=== PATIENT | male | born 1950 | race African-American/Black ===

== ENCOUNTER 2016-09-25 06:40 | Emergency (ER) | payer MEDICARE ==
[~2016-09-25] VITALS: Ht 182.9 cm; Wt 100.0 kg
[~2016-09-25 06:40] MED LIST: GABA300C PO
[2016-09-25] MEDS ORDERED: IPRATROPIUM BROMIDE (0.02%) 0.5MG/2.5ML NEB HHN STA (07:16)
[2016-09-25] MEDS ORDERED: ALBUTEROL (0.083%) 2.5MG/3ML NEB HHN STA (07:16)
[2016-09-25] MEDS ORDERED: METHYLPREDNISOLONE SOD SUCC 125 MG/2 ML VIAL IV STA (07:16)
[2016-09-25] MEDS ORDERED: ALBUTEROL (0.5%) 2.5MG/0.5ML NEB HHN ONE (07:45)
[2016-09-25] MEDS ORDERED: MAGNESIUM 2 G PREMIX 50 ML IV STA (09:04)
[2016-09-25] MEDS ORDERED: ALBUTEROL (0.083%) 2.5MG/3ML NEB HHN ONE ×2 (09:15→10:45)
[2016-09-25 10:18] VITALS: BP 149/84
== END 2016-09-25 12:20 | disposition home or self-care (01) ==
LOC: EDBD 06:40 → ER 07:30
DX: J44.1 Chronic obstructive pulmonary disease with (acute) exacerbation (principal); F17.210 Nicotine dependence, cigarettes, uncomplicated; I10 Essential (primary) hypertension; Z88.0 Allergy status to penicillin; F41.9 Anxiety disorder, unspecified
CPT/HCPCS: 71010; 93005; 94640; 96365; 96366; 96375; 99285; J2930; J3475; J7611; Z7610

== ENCOUNTER 2016-11-26 09:10 | Emergency (ER) | payer MEDICARE ==
[~2016-11-26] VITALS: Ht 182.9 cm; Wt 96.0 kg
[2016-11-26 10:01] VITALS: BP 129/90
== END 2016-11-26 15:27 | disposition left against medical advice (07) ==
LOC: EDBD 09:10 → ER 09:10
DX: Z53.21 Procedure and treatment not carried out due to patient leaving prior to being seen by health care provider (principal); F41.9 Anxiety disorder, unspecified; J44.9 Chronic obstructive pulmonary disease, unspecified; I10 Essential (primary) hypertension; F17.210 Nicotine dependence, cigarettes, uncomplicated; F12.10 Cannabis abuse, uncomplicated

== ENCOUNTER 2017-02-02 07:56 | Inpatient (IN) | payer MEDICARE ==
[~2017-02-02] VITALS: Ht 182.9 cm; Wt 99.8 kg
[2017-02-02] MEDS ORDERED: IPRATROPIUM BROMIDE (0.02%) 0.5MG/2.5ML NEB HHN STA (08:28)
[2017-02-02] MEDS ORDERED: ALBUTEROL (0.083%) 2.5MG/3ML NEB HHN STA (08:28)
[2017-02-02] MEDS ORDERED: METHYLPREDNISOLONE SOD SUCC 125 MG/2 ML VIAL IV STA (08:28)
[2017-02-02] MEDS ORDERED: AZITHROMYCIN 500 MG TABLET PO STA (08:28)
[2017-02-02 08:38] LABS: BASOPHILS % 1.4 % (0.0-2.0); EOSINOPHILS % 5.6 % (0.0-5.0); HEMOGLOBIN. 13.7 g/dL (14.0-18.0); LYMPHOCYTES % 51.1 % (20.0-50.0); MEAN CORPUSCULAR HEMOGLOBIN 31.9 pg (28.0-32.0); MEAN CORPUSCULAR VOLUME 97.8 fL (80.0-94.0); MONOCYTES % 9.7 % (2.0-8.0); NEUTROPHILS % 32.2 % (40.0-76.0); PLATELET 174 x1000/uL (130-400); RED BLOOD CELL COUNT 4.29 mill/uL (4.7-6.1); RED CELL DISTRIBUTION WIDTH 17.9 % (11.6-14.6)
[2017-02-02 08:40] LABS: PROTHROMBIN TIME 10.4 sec (9.4-11.6)
[2017-02-02 08:48] LABS: CARBON DIOXIDE 29 mEq/L (21-32); CHLORIDE 109 mEq/L (98-107)
[2017-02-02 08:51] LABS: TROPONIN I < 0.02 ng/mL (0.00-0.04)
[2017-02-02] MEDS ORDERED: NA PHOS,M-B/NA PHOS,DI-BA ENEMA 118ML PR PRN (12:45)
[2017-02-02] MEDS ORDERED: CLONIDINE 0.1MG TABLET PO PRN (12:45)
[2017-02-02] MEDS ORDERED: GUAIFENESIN 200MG/10ML SUGAR FREE UDC PO PRN (12:45)
[2017-02-02] MEDS ORDERED: LORAZEPAM 2MG/ML CPJ IV PRN (12:45)
[2017-02-02] MEDS ORDERED: ONDANSETRON HCL 4MG/2ML VIAL IV PRN (12:45)
[2017-02-02] MEDS ORDERED: ACETAMINOPHEN 325MG TABLET PO PRN (12:45)
[2017-02-02] MEDS ORDERED: NITROGLYCERIN 0.4MG TABLET SL SL PRN (12:45)
[2017-02-02] MEDS ORDERED: DOCUSATE SODIUM 100MG CAPSULE PO PRN (12:45)
[2017-02-02] MEDS ORDERED: KETOROLAC 15MG/ML VIAL IV PRN (12:45)
[2017-02-02] MEDS ORDERED: IPRATROPIUM/ALBUTEROL 0.5-3(2.5)MG/3ML NEB INH PRN (12:45)
[2017-02-02] MEDS ORDERED: MAGNESIUM/ALUMINUM HYDROXIDE/SIMETHICONE 30ML UDC PO PRN (12:45)
[2017-02-02 13:00] VITALS: BP 143/84
[2017-02-02 13:51] VITALS: BP 143/84
[2017-02-02] MEDS ORDERED: ASPIRIN 325MG EC TABLET PO SCH (14:00)
[2017-02-02] MEDS ORDERED: IPRATROPIUM/ALBUTEROL 0.5-3(2.5)MG/3ML NEB HHN SCH (14:00)
[2017-02-02] MEDS ORDERED: ENOXAPARIN 40MG/0.4ML SYR SUBCUT SCH (14:00)
[2017-02-02] MEDS ORDERED: FAMOTIDINE 20MG/2ML VIAL IV SCH (14:00)
[2017-02-02] MEDS ORDERED: METHYLPREDNISOLONE SOD SUCC 125 MG/2 ML VIAL IV SCH (14:00)
[2017-02-02] MEDS ORDERED: LEVOFLOXACIN 500MG PREMIX 100 ML IV NR (15:00)
[2017-02-02 15:51] LABS: CREATINE KINASE 59 IU/L (39-308); CREATINE KINASE MB FRACTION 1.3 ng/mL (0.5-3.6); TROPONIN I < 0.02 ng/mL (0.00-0.04)
[2017-02-02 16:00] VITALS: BP 125/88
[2017-02-02 20:00] VITALS: BP 157/86
[2017-02-02] MEDS ORDERED: ZOLPIDEM TARTRATE 5MG TABLET PO PRN (21:00)
[2017-02-02] MEDS ORDERED: LISINOPRIL 20MG TABLET PO SCH (21:00)
[2017-02-02 21:53] LABS: *AMPHETAMINES SCREEN URINE NEGATIVE (NEGATIVE); *BARBITURATES SCREEN URINE NEGATIVE (NEGATIVE); *BENZODIAZEPINES SCREEN URINE NEGATIVE (NEGATIVE); *COCAINE SCREEN URINE PRESUMTIVE POSITIVE (NEGATIVE); CANNABINOID URINE SCREEN PRESUMTIVE POSITIVE (NEGATIVE); METHADONE URINE SCREEN NEGATIVE (NEGATIVE); OPIATES URINE SCREEN NEGATIVE (NEGATIVE); PHENCYCLIDINE URINE SCREEN NEGATIVE (NEGATIVE)
[2017-02-03] MEDS ORDERED: ZINC SULFATE 220 MG ( 50 ) CAPSULE PO SCH (09:00)
[2017-02-03] MEDS ORDERED: LEVOFLOXACIN 250MG PREMIX 50 ML IV SCH (15:00)
== END 2017-02-02 20:00 | disposition left against medical advice (07) | DRG 140 ==
LOC: ER 07:56 → 5WST 10:07 → EDBEDREQ 10:09 → ENRESERV 11:31
PROVIDERS: ADMIT Internal Medicine; ATTEND Internal Medicine
DX: J44.1 Chronic obstructive pulmonary disease with (acute) exacerbation (principal); N17.0 Acute kidney failure with tubular necrosis; D64.9 Anemia, unspecified; E83.52 Hypercalcemia; F17.210 Nicotine dependence, cigarettes, uncomplicated; I10 Essential (primary) hypertension; F41.9 Anxiety disorder, unspecified; Z53.21 Procedure and treatment not carried out due to patient leaving prior to being seen by health care provider; F14.90 Cocaine use, unspecified, uncomplicated; F15.90 Other stimulant use, unspecified, uncomplicated; Z79.899 Other long term (current) drug therapy; Z88.0 Allergy status to penicillin; Z71.51 Drug abuse counseling and surveillance of drug abuser
CPT/HCPCS: 36415; 71010; 80053; 80061; 80305; 82550; 82553; 83036; 83880; 84484; 85025; 85610; 93005; 93970; 94640; 96374; 99285; J1650; J1885; J1956; J2930; J3490; J7050; J7611; J7620

== ENCOUNTER 2017-02-08 17:54 | Inpatient (IN) | payer MEDICARE ==
[~2017-02-08] VITALS: Ht 182.9 cm; Wt 130.2 kg
[2017-02-08] MEDS ORDERED: IPRATROPIUM/ALBUTEROL 0.5-3(2.5)MG/3ML NEB HHN ONE (19:00)
[2017-02-08 19:33] LABS: BASOPHILS % 0.8 % (0.0-2.0); EOSINOPHILS % 3.5 % (0.0-5.0); HEMATOCRIT. 36.3 % (42.0-52.0); HEMOGLOBIN. 11.9 g/dL (14.0-18.0); LYMPHOCYTES % 40.8 % (20.0-50.0); MEAN CORPUSCULAR HEMOGLOBIN 32.2 pg (28.0-32.0); MEAN CORPUSCULAR VOLUME 97.8 fL (80.0-94.0); MEAN PLATELET VOLUME 9.8 fl (7.4-10.4); MONOCYTES % 7.8 % (2.0-8.0); NEUTROPHILS % 47.1 % (40.0-76.0); PLATELET 188 x1000/uL (130-400); RED BLOOD CELL COUNT 3.71 mill/uL (4.7-6.1); RED CELL DISTRIBUTION WIDTH 17.2 % (11.6-14.6)
[2017-02-08 19:46] LABS: CHLORIDE 108 mEq/L (98-107)
[2017-02-08 19:48] LABS: CARBON DIOXIDE 29 mEq/L (21-32)
[2017-02-08 19:55] LABS: TROPONIN I < 0.02 ng/mL (0.00-0.04)
[2017-02-08 23:10] VITALS: BP 124/88
[2017-02-09] MEDS ORDERED: MORPHINE SULFATE 4 MG/ML CPJ (NOT FOR IM USE) IV PRN (02:45)
[2017-02-09] MEDS ORDERED: METHYLPREDNISOLONE SOD SUCC 40 MG/ML VIAL IV SCH (02:45)
[2017-02-09] MEDS ORDERED: IPRATROPIUM/ALBUTEROL 0.5-3(2.5)MG/3ML NEB HHN PRN (02:45)
[2017-02-09] MEDS ORDERED: ONDANSETRON HCL 4MG/2ML VIAL IV PRN (02:45)
[2017-02-09] MEDS ORDERED: CLONIDINE 0.1MG TABLET PO PRN (03:00)
[2017-02-09 04:00] VITALS: BP 130/79
[2017-02-09 04:57] VITALS: BP 124/88
[2017-02-09] MEDS ORDERED: IPRATROPIUM/ALBUTEROL 0.5-3(2.5)MG/3ML NEB HHN SCH (06:00)
[2017-02-09 08:00] VITALS: BP 144/97
[2017-02-09] MEDS ORDERED: FUROSEMIDE 40MG/4ML VIAL IVP SCH (09:00)
[2017-02-09] MEDS ORDERED: INFLUENZA VIRUS VACCINE 0.5ML SYR IM ONE (09:00)
[2017-02-09] MEDS ORDERED: AMLODIPINE 10MG TABLET PO SCH (09:00)
[2017-02-09] MEDS ORDERED: ASPIRIN 81MG TABLET PO SCH (09:00)
== END 2017-02-09 08:30 | disposition left against medical advice (07) | DRG 140 ==
LOC: ER 17:54 → 7WST 20:46 → EDBEDREQ 20:52 → EDBEDREQTM 20:52 → ENRESERV 21:14
PROVIDERS: ADMIT Hospitalist; ATTEND Hospitalist
DX: J44.1 Chronic obstructive pulmonary disease with (acute) exacerbation (principal); I95.9 Hypotension, unspecified; E11.22 Type 2 diabetes mellitus with diabetic chronic kidney disease; E87.8 Other disorders of electrolyte and fluid balance, not elsewhere classified; E88.09 Other disorders of plasma-protein metabolism, not elsewhere classified; E87.70 Fluid overload, unspecified; D53.9 Nutritional anemia, unspecified; F17.200 Nicotine dependence, unspecified, uncomplicated; J45.909 Unspecified asthma, uncomplicated; N18.9 Chronic kidney disease, unspecified; I12.9 Hypertensive chronic kidney disease with stage 1 through stage 4 chronic kidney disease, or unspecified chronic kidney disease; E86.0 Dehydration; M94.0 Chondrocostal junction syndrome [Tietze]; Z53.21 Procedure and treatment not carried out due to patient leaving prior to being seen by health care provider; Z88.0 Allergy status to penicillin; Z79.899 Other long term (current) drug therapy; Z86.73 Personal history of transient ischemic attack (TIA), and cerebral infarction without residual deficits
CPT/HCPCS: 36415; 71010; 80053; 83036; 83880; 84484; 85025; 85610; 85651; 87040; 90686; 93005; 94640; 94664; 99285; J2920; J7620

== ENCOUNTER 2018-03-23 09:07 | Emergency (ER) | payer MEDICARE ==
[~2018-03-23] VITALS: Ht 182.9 cm; Wt 82.0 kg
[2018-03-23] MEDS ORDERED: ONDANSETRON 4MG ODT PO ONE (11:00)
[2018-03-23] MEDS ORDERED: MORPHINE SULFATE 10 MG/ML CPJ IM ONE (11:00)
[2018-03-23 11:24] LABS: BASOPHILS % 1.8 % (0.0-2.0); EOSINOPHILS % 2.8 % (0.0-5.0); HEMATOCRIT. 40.3 % (42.0-52.0); HEMOGLOBIN. 13.2 g/dL (14.0-18.0); LYMPHOCYTES % 54.6 % (20.0-50.0); MEAN CORPUSCULAR HEMOGLOBIN 28.6 pg (28.0-32.0); MEAN CORPUSCULAR VOLUME 86.9 fL (80.0-94.0); MEAN PLATELET VOLUME 8.7 fl (7.4-10.4); MONOCYTES % 10.2 % (2.0-8.0); NEUTROPHILS % 30.6 % (40.0-76.0); PLATELET 160 x1000/uL (130-400); RED BLOOD CELL COUNT 4.63 mill/uL (4.7-6.1); RED CELL DISTRIBUTION WIDTH 17.1 % (11.6-14.6)
[2018-03-23 11:30] LABS: CHLORIDE 108 mEq/L (98-107)
[2018-03-23 11:33] LABS: PROTHROMBIN TIME 10.4 sec (9.1-11.1)
[2018-03-23] MEDS ORDERED: MORPHINE SULFATE 4 MG/ML CPJ (NOT FOR IM USE) IV ONE (12:45)
[2018-03-23 13:56] VITALS: BP 142/88
== END 2018-03-23 14:00 | disposition home or self-care (01) ==
LOC: ER 13:24
DX: M25.551 Pain in right hip (principal); M54.5 Low back pain; E11.9 Type 2 diabetes mellitus without complications; I10 Essential (primary) hypertension; F17.200 Nicotine dependence, unspecified, uncomplicated; F12.10 Cannabis abuse, uncomplicated; Z88.0 Allergy status to penicillin
CPT/HCPCS: 36415; 72100; 73502; 80053; 85025; 85610; 85651; 86140; 96374; 99285; J2270; Q0162

== ENCOUNTER 2018-09-27 16:48 | Inpatient (IN) | payer MEDICARE ==
[~2018-09-27] VITALS: Ht 182.9 cm; Wt 83.9 kg
[2018-09-27] MEDS ORDERED: ALBUTEROL (0.083%) 2.5MG/3ML NEB HHN STA (17:24)
[2018-09-27] MEDS ORDERED: ONDANSETRON HCL 4MG/2ML INJ IV STA (17:24)
[2018-09-27] MEDS ORDERED: METHYLPREDNISOLONE SOD SUCC 125 MG/2 ML VIAL IV STA (17:24)
[2018-09-27] MEDS ORDERED: IPRATROPIUM BROMIDE (0.02%) 0.5MG/2.5ML NEB HHN STA (17:24)
[2018-09-27] MEDS ORDERED: ASPIRIN 81MG TABLET PO ONE (17:30)
[2018-09-27 17:51] LABS: BG BASE EXCESS 0.9 mmol/L (-2.0-2.0); BG DEOXYHEMOGLOBIN 9.5 % (0.0-5.0); BG FRACTION INSPIRED OXYGEN 28; BG HCO3 ACT 25.1 mmol/L (22.0-26.0); BG METHEMOGLOBIN 0.1 % (0.0-1.5); BG OXYGEN SATURATION 90.3 % (92.0-98.5); BG OXYHEMOGLOBIN 88.4 % (94.0-97.0); BG PCO2 38.8 mmHg (35.0-45.0); BG PH 7.429 (7.350-7.450); BG PO2 58.3 mmHg (75.0-100.0); BG SAMPLE SITE RIGHT RADIAL; BG TOTAL HEMOGLOBIN 14.6 g/dL (12.0-18.0); BG VENT MODE NASAL CANNULA
[2018-09-27 18:38] LABS: HEMATOCRIT. 43.5 % (42.0-52.0); HEMOGLOBIN. 14.2 g/dL (14.0-18.0); MEAN CORPUSCULAR HEMOGLOBIN 30.7 pg (28.0-32.0); MEAN CORPUSCULAR VOLUME 94.1 fL (80.0-94.0); MEAN PLATELET VOLUME 8.7 fl (7.4-10.4); PLATELET 145 x1000/uL (130-400); RED BLOOD CELL COUNT 4.62 mill/uL (4.7-6.1); RED CELL DISTRIBUTION WIDTH 17.3 % (11.6-14.6)
[2018-09-27 18:44] LABS: CHLORIDE 105 mEq/L (98-107)
[2018-09-27 20:15] LABS: PLATELET ESTIMATE NORMAL
[2018-09-27] MEDS ORDERED: ALBUTEROL (0.5%) 2.5MG/0.5ML NEB HHN ONE (22:00)
[2018-09-27] MEDS ORDERED: DOCUSATE SODIUM 100MG CAPSULE PO PRN (23:30)
[2018-09-27] MEDS ORDERED: ACETAMINOPHEN 650MG/20.3ML UDC GT PRN (23:30)
[2018-09-27] MEDS ORDERED: ACETAMINOPHEN 650MG SUPP PR PRN (23:30)
[2018-09-27] MEDS ORDERED: ACETAMINOPHEN 325MG TABLET PO PRN (23:30)
[2018-09-27] MEDS ORDERED: MAGNESIUM/ALUMINUM HYDROXIDE/SIMETHICONE 30ML UDC PO PRN (23:30)
[2018-09-27] MEDS ORDERED: CLONIDINE 0.1MG TABLET PO PRN (23:30)
[2018-09-27] MEDS ORDERED: GUAIFENESIN 200MG/10ML SUGAR FREE UDC PO PRN (23:30)
[2018-09-27] MEDS ORDERED: IPRATROPIUM/ALBUTEROL 0.5-3(2.5)MG/3ML NEB INH PRN (23:30)
[2018-09-27] MEDS ORDERED: HYDROCODONE/ACETAMINOPHEN 5/325MG TABLET PO PRN (23:30)
[2018-09-27] MEDS ORDERED: ONDANSETRON HCL 4MG/2ML INJ IV PRN (23:30)
[2018-09-27] MEDS ORDERED: DIPHENHYDRAMINE 50MG/ML VIAL IV PRN (23:30)
[2018-09-28] MEDS ORDERED: SODIUM CHLORIDE 0.45% 1,000 ML IV SCH (00:16)
[2018-09-28] MEDS: METHYLPREDNISOLONE SOD SUCC 125 MG/2 ML VIAL IV SCH ×2 (00:33→06:00)
[2018-09-28 02:30] VITALS: BP 134/81
[2018-09-28] MEDS ORDERED: NA PHOS,M-B/NA PHOS,DI-BA ENEMA 118ML PR PRN (03:11)
[2018-09-28 04:00] VITALS: BP 147/82
[2018-09-28] MEDS ORDERED: SODIUM CHLORIDE 0.9% INJ 3ML FLUSH IVF SCH (06:00)
[2018-09-28 06:02] LABS: BASOPHILS % 0.5 % (0.0-2.0); HEMATOCRIT. 39.5 % (42.0-52.0); LYMPHOCYTES % 12.1 % (20.0-50.0); MEAN CORPUSCULAR HEMOGLOBIN 30.7 pg (28.0-32.0); MEAN CORPUSCULAR VOLUME 93.3 fL (80.0-94.0); MEAN PLATELET VOLUME 8.5 fl (7.4-10.4); MONOCYTES % 2.2 % (2.0-8.0); NEUTROPHILS % 85.2 % (40.0-76.0); PLATELET 140 x1000/uL (130-400); RED BLOOD CELL COUNT 4.23 mill/uL (4.7-6.1); RED CELL DISTRIBUTION WIDTH 17.3 % (11.6-14.6)
[2018-09-28 06:46] LABS: CHLORIDE 106 mEq/L (98-107)
[2018-09-28 07:07] LABS: LDL CHOLESTEROL 99 mg/dL (5-100)
[2018-09-28 07:08] LABS: HDL CHOLESTEROL 63 mg/dL (40-59)
[2018-09-28 08:00] VITALS: BP 134/84
[2018-09-28] MEDS ORDERED: ENOXAPARIN 30MG/0.3ML SYR SUBCUT SCH (09:00)
[2018-09-28] MEDS ORDERED: ENOXAPARIN 40MG/0.4ML SYR SUBCUT SCH ×2 (09:00)
[2018-09-28 09:50] LABS: CLARITY URINE CLOUDY (CLEAR); COLOR URINE YELLOW (YELLOW); KETONES URINE NEGATIVE (NEGATIVE); LEUKOCYTE ESTERASE URINE 1+ (NEGATIVE); NITRITE URINE NEGATIVE (NEGATIVE); OCCULT BLOOD URINE NEGATIVE (NEGATIVE); PROTEIN URINE 1+ (NEGATIVE); SPECIFIC GRAVITY URINE 1.019 (1.005-1.030); UROBILINOGEN URINE 0.2 E.U./dL (0.2-1.0)
[2018-09-28 10:57] LABS: *AMPHETAMINES SCREEN URINE NEGATIVE (NEGATIVE); *BARBITURATES SCREEN URINE NEGATIVE (NEGATIVE); *BENZODIAZEPINES SCREEN URINE NEGATIVE (NEGATIVE); *COCAINE SCREEN URINE NEGATIVE (NEGATIVE); METHADONE URINE SCREEN NEGATIVE (NEGATIVE); OPIATES URINE SCREEN NEGATIVE (NEGATIVE)
[2018-09-28 10:58] LABS: CANNABINOID URINE SCREEN PRESUMTIVE POSITIVE (NEGATIVE); PHENCYCLIDINE URINE SCREEN NEGATIVE (NEGATIVE)
[2018-09-28 11:52] VITALS: BP 164/99
[2018-09-28] MEDS ORDERED: INFLUENZA VIRUS VACCINE(AFLURIA) 0.5ML SYR IM ONE (12:00)
[2018-09-28] MEDS ORDERED: PNEUMOCOCCAL 23-VAL P-SAC VAC 0.5 ML IM ONE (12:00)
[2018-09-29] MEDS ORDERED: AMLO5TAB88 PO (14:58)
[2018-09-29] MEDS ORDERED: BENA20TA10 PO (14:58)
[2018-09-29] MEDS ORDERED: CLON-457 PO (14:58)
[2018-09-29] MEDS ORDERED: ATEN-42 PO (14:58)
[2018-09-29] MEDS ORDERED: DARU1TAB PO (14:58)
[2018-09-29] MEDS ORDERED: ABAC1TAB3 PO (14:59)
== END 2018-09-28 12:35 | disposition left against medical advice (07) | DRG 140 ==
LOC: ER 17:01 → 7WST 22:20 → EDBEDREQTM 22:26 → EDBEDREQ 22:26 → ENRESERV 09-28 01:36
PROVIDERS: ADMIT Family Medicine; ATTEND Family Medicine
PROC: 5A09357 Assistance with Respiratory Ventilation, Less than 24 Consecutive Hours, Continuous Positive Airway Pressure (ICD-10-PCS; principal; 2018-09-27)
DX: J44.1 Chronic obstructive pulmonary disease with (acute) exacerbation (principal); I11.0 Hypertensive heart disease with heart failure; I50.9 Heart failure, unspecified; E11.9 Type 2 diabetes mellitus without complications; E86.0 Dehydration; Z53.21 Procedure and treatment not carried out due to patient leaving prior to being seen by health care provider; Z88.0 Allergy status to penicillin; Z79.899 Other long term (current) drug therapy
CPT/HCPCS: 36415; 36600; 71045; 80061; 80305; 82375; 82805; 82962; 83605; 83880; 84484; 93005; 94640; 94660; 96374; 96375; 99291; J1650; J2405; J2930; J7611

== ENCOUNTER 2018-10-27 08:30 | Inpatient (IN) | payer MEDICARE ==
[~2018-10-27] VITALS: Ht 182.9 cm; Wt 84.4 kg
[~2018-10-27 08:30] MED LIST changes: +ABAC1TAB3 PO; +AMLO5TAB88 PO; +ATEN-42 PO; +BENA20TA10 PO; +CLON-457 PO; +DARU1TAB PO
[2018-10-27] MEDS ORDERED: ACETAMINOPHEN WITH CODEINE 300/30MG TABLET PO ONE (09:00)
[2018-10-27 09:57] LABS: CHLORIDE 110 mEq/L (98-107)
[2018-10-27 10:01] LABS: BASOPHILS % 1.2 % (0.0-2.0); EOSINOPHILS % 2.1 % (0.0-5.0); HEMATOCRIT. 40.2 % (42.0-52.0); HEMOGLOBIN. 12.9 g/dL (14.0-18.0); LYMPHOCYTES % 60.1 % (20.0-50.0); MEAN CORPUSCULAR HEMOGLOBIN 30.8 pg (28.0-32.0); MEAN CORPUSCULAR VOLUME 95.8 fL (80.0-94.0); MONOCYTES % 11.6 % (2.0-8.0); PLATELET 268 x1000/uL (130-400); RED CELL DISTRIBUTION WIDTH 18.6 % (11.6-14.6)
[2018-10-27] MEDS ORDERED: MORPHINE SULFATE 4 MG/ML CPJ (NOT FOR IM USE) IV ONE (10:30)
[2018-10-27 12:00] VITALS: BP 118/76
[2018-10-27] MEDS ORDERED: MORPHINE SULFATE 2 MG/ML CPJ (NOT FOR IM USE) IV PRN (12:15)
[2018-10-27] MEDS ORDERED: DOCUSATE SODIUM 100MG CAPSULE PO PRN (12:15)
[2018-10-27] MEDS ORDERED: ACETAMINOPHEN 325MG TABLET PO PRN (12:15)
[2018-10-27] MEDS ORDERED: NA PHOS,M-B/NA PHOS,DI-BA ENEMA 118ML PR PRN (12:15)
[2018-10-27] MEDS ORDERED: IPRATROPIUM/ALBUTEROL 0.5-3(2.5)MG/3ML NEB INH PRN (12:15)
[2018-10-27] MEDS ORDERED: MAGNESIUM/ALUMINUM HYDROXIDE/SIMETHICONE 30ML UDC PO PRN (12:15)
[2018-10-27] MEDS ORDERED: CLONIDINE 0.1MG TABLET PO PRN (12:15)
[2018-10-27] MEDS ORDERED: LORAZEPAM 2MG/ML CPJ IV PRN (12:15)
[2018-10-27] MEDS ORDERED: GUAIFENESIN 200MG/10ML SUGAR FREE UDC PO PRN (12:15)
[2018-10-27] MEDS ORDERED: HYDROCODONE/ACETAMINOPHEN 5/325MG TABLET PO PRN (12:15)
[2018-10-27] MEDS ORDERED: DIPHENHYDRAMINE 50MG/ML VIAL IV PRN (12:15)
[2018-10-27] MEDS ORDERED: ONDANSETRON HCL 4MG/2ML INJ IV PRN (12:15)
[2018-10-27] MEDS: ENOXAPARIN 40MG/0.4ML SYR SUBCUT SCH (12:51)
[2018-10-27 12:56] VITALS: BP 118/76
[2018-10-27 15:38] LABS: CHLORIDE 110 mEq/L (98-107)
[2018-10-27 16:00] VITALS: BP 145/87
[2018-10-27 20:00] VITALS: BP 143/85
[2018-10-28] VITALS: BP 113/67
[2018-10-28 04:00] VITALS: BP 127/72
[2018-10-28 06:27] LABS: CHLORIDE 109 mEq/L (98-107)
[2018-10-28 06:39] LABS: LDL CHOLESTEROL 92 mg/dL (5-100)
[2018-10-28 06:40] LABS: T4 FREE 1.13 ng/dL (0.76-1.46)
[2018-10-28 06:42] LABS: HDL CHOLESTEROL 47 mg/dL (40-59)
[2018-10-28 07:35] LABS: HEMATOCRIT. 36.5 % (42.0-52.0); HEMOGLOBIN. 11.9 g/dL (14.0-18.0); MEAN CORPUSCULAR HEMOGLOBIN 31.3 pg (28.0-32.0); MEAN CORPUSCULAR VOLUME 95.9 fL (80.0-94.0); MEAN PLATELET VOLUME 8.5 fl (7.4-10.4); PLATELET 335 x1000/uL (130-400); RED BLOOD CELL COUNT 3.81 mill/uL (4.7-6.1); RED CELL DISTRIBUTION WIDTH 18.2 % (11.6-14.6)
[2018-10-28 08:00] VITALS: BP 127/91
[2018-10-28] MEDS: NICOTINE 21MG PATCH TD SCH ×2 (09:00→11:51)
[2018-10-28 12:00] VITALS: BP 143/96
[2018-10-28 12:26] VITALS: BP 127/91
[2018-10-28 19:05] LABS: NUCLEATED RED BLOOD CELLS 1 /100 WBC; PLATELET ESTIMATE NORMAL
== END 2018-10-28 13:50 | disposition home or self-care (01) | DRG 351 ==
LOC: ER 08:30 → 6EST 10:25 → ENRESERV 11:27
PROVIDERS: ADMIT Internal Medicine; ATTEND Internal Medicine
DX: M87.851 Other osteonecrosis, right femur (principal); N17.0 Acute kidney failure with tubular necrosis; G89.29 Other chronic pain; F17.210 Nicotine dependence, cigarettes, uncomplicated; K21.9 Gastro-esophageal reflux disease without esophagitis; I10 Essential (primary) hypertension; M81.0 Age-related osteoporosis without current pathological fracture; Z82.49 Family history of ischemic heart disease and other diseases of the circulatory system; Z79.899 Other long term (current) drug therapy; Z88.0 Allergy status to penicillin
CPT/HCPCS: 36415; 71045; 73502; 80048; 80061; 84439; 84443; 93005; 96374; 97163; 99285; J1650; J2060; J2270; J7620

== ENCOUNTER 2019-05-14 12:33 | Inpatient (IN) | payer MEDICARE ==
[~2019-05-14] VITALS: Ht 182.9 cm; Wt 80.3 kg
[~2019-05-14 12:33] MED LIST changes: -BENA20TA10 PO; -DARU1TAB PO
[2019-05-14] MEDS ORDERED: ALBUTEROL (0.083%) 2.5MG/3ML NEB HHN STA (13:04)
[2019-05-14 14:14] LABS: BASOPHILS % 2.5 % (0.0-2.0); EOSINOPHILS % 1.1 % (0.0-5.0); HEMATOCRIT. 39.1 % (42.0-52.0); HEMOGLOBIN. 13.1 g/dL (14.0-18.0); LYMPHOCYTES % 33.2 % (20.0-50.0); MEAN CORPUSCULAR HEMOGLOBIN 31.3 pg (28.0-32.0); MEAN CORPUSCULAR VOLUME 93.5 fL (80.0-94.0); MEAN PLATELET VOLUME 8.3 fl (7.4-10.4); MONOCYTES % 9.9 % (2.0-8.0); NEUTROPHILS % 53.3 % (40.0-76.0); PLATELET 188 x1000/uL (130-400); RED BLOOD CELL COUNT 4.19 mill/uL (4.7-6.1); RED CELL DISTRIBUTION WIDTH 18.7 % (11.6-14.6)
[2019-05-14 14:20] LABS: CHLORIDE 108 mEq/L (98-107)
[2019-05-14] MEDS ORDERED: METHYLPREDNISOLONE SOD SUCC 125 MG/2 ML VIAL IV ONE (15:00)
[2019-05-14] MEDS ORDERED: ACETAMINOPHEN 325MG TABLET PO ONE (16:15)
[2019-05-14] MEDS ORDERED: MAGNESIUM/ALUMINUM HYDROXIDE/SIMETHICONE 30ML UDC PO PRN (16:45)
[2019-05-14] MEDS ORDERED: DIPHENHYDRAMINE 50MG/ML VIAL IV PRN (16:45)
[2019-05-14] MEDS ORDERED: IPRATROPIUM/ALBUTEROL 0.5-3(2.5)MG/3ML NEB NEB PRN (16:45)
[2019-05-14] MEDS ORDERED: NITROGLYCERIN 0.4MG TABLET SL SL PRN (16:45)
[2019-05-14] MEDS ORDERED: CLONIDINE 0.1MG TABLET PO PRN (16:45)
[2019-05-14] MEDS ORDERED: ACETAMINOPHEN 325MG TABLET PO PRN (16:45)
[2019-05-14] MEDS ORDERED: DOCUSATE SODIUM 100MG CAPSULE PO PRN (16:45)
[2019-05-14] MEDS ORDERED: LORAZEPAM 0.5MG TABLET PO PRN (16:45)
[2019-05-14] MEDS ORDERED: ONDANSETRON HCL 4MG/2ML INJ IV PRN (16:45)
[2019-05-14] MEDS ORDERED: KETOROLAC 15MG/ML VIAL IV PRN (16:45)
[2019-05-14] MEDS ORDERED: GUAIFENESIN 200MG/10ML SUGAR FREE UDC PO PRN (16:45)
[2019-05-14] MEDS ORDERED: TRAMADOL 50MG TABLET PO PRN (16:46)
[2019-05-14] MEDS ORDERED: LEVOFLOXACIN 500MG PREMIX 100 ML IV NR (18:37)
[2019-05-14] MEDS ORDERED: NA PHOS,M-B/NA PHOS,DI-BA ENEMA 118ML PR PRN (21:00)
[2019-05-14] MEDS ORDERED: ZOLPIDEM TARTRATE 5MG TABLET PO PRN (21:00)
[2019-05-14 23:00] VITALS: BP 168/100
[2019-05-14] MEDS: FAMOTIDINE 20MG TABLET PO SCH (23:45)
[2019-05-14] MEDS: LISINOPRIL 20MG TABLET PO SCH (23:45)
[2019-05-14 23:57] LABS: CREATINE KINASE 43 IU/L (39-308)
[2019-05-14 23:58] LABS: CREATINE KINASE MB FRACTION < 1.0 ng/mL (0.5-3.6)
[2019-05-15] MEDS: METHYLPREDNISOLONE SOD SUCC 125 MG/2 ML VIAL IV SCH ×2 (00:50→09:43)
[2019-05-15] MEDS ORDERED: LEVOFLOXACIN 500MG PREMIX 100 ML IV NR (01:00)
[2019-05-15 04:00] VITALS: BP 169/105
[2019-05-15] MEDS: IPRATROPIUM/ALBUTEROL 0.5-3(2.5)MG/3ML NEB HHN SCH ×2 (05:03→07:56)
[2019-05-15] MEDS ORDERED: GABAPENTIN 100MG CAPSULE PO SCH (06:00)
[2019-05-15 07:34] LABS: *AMPHETAMINES SCREEN URINE NEGATIVE (NEGATIVE); *BENZODIAZEPINES SCREEN URINE NEGATIVE (NEGATIVE); METHADONE URINE SCREEN NEGATIVE (NEGATIVE); OPIATES URINE SCREEN PRESUMTIVE POSITIVE (NEGATIVE)
[2019-05-15 07:35] LABS: CANNABINOID URINE SCREEN PRESUMTIVE POSITIVE (NEGATIVE); PHENCYCLIDINE URINE SCREEN NEGATIVE (NEGATIVE)
[2019-05-15 07:37] LABS: *BARBITURATES SCREEN URINE NEGATIVE (NEGATIVE)
[2019-05-15 07:38] LABS: *COCAINE SCREEN URINE NEGATIVE (NEGATIVE)
[2019-05-15 08:00] VITALS: BP 162/117
[2019-05-15] MEDS ORDERED: ENOXAPARIN 30MG/0.3ML SYR SUBCUT SCH (09:00)
[2019-05-15] MEDS ORDERED: ASPIRIN 325MG EC TABLET PO SCH (09:00)
[2019-05-15] MEDS ORDERED: ASCORBIC ACID 500 MG TABLET PO SCH (09:00)
[2019-05-15] MEDS ORDERED: GUAIFENESIN/DM 600MG/30MG ER TAB 12HR PO SCH (09:00)
[2019-05-15] MEDS ORDERED: ZINC SULFATE 220 MG ( 50 ) CAPSULE PO SCH (09:00)
[2019-05-15 09:04] LABS: CREATINE KINASE 48 IU/L (39-308)
[2019-05-15 09:06] LABS: CREATINE KINASE MB FRACTION < 1.0 ng/mL (0.5-3.6)
[2019-05-15] MEDS: FAMOTIDINE 20MG TABLET PO SCH (09:44)
[2019-05-15] MEDS: LISINOPRIL 20MG TABLET PO SCH (09:44)
[2019-05-15] MEDS ORDERED: LEVOFLOXACIN 500MG PREMIX 100 ML IV SCH (21:00)
== END 2019-05-15 10:36 | disposition left against medical advice (07) | DRG 140 ==
LOC: ER 12:33 → 5WST 16:11 → SUPCPDRO 16:36 → ENRESERV 22:08
PROVIDERS: ADMIT Internal Medicine; ATTEND Internal Medicine
DX: J44.1 Chronic obstructive pulmonary disease with (acute) exacerbation (principal); J96.00 Acute respiratory failure, unspecified whether with hypoxia or hypercapnia; G62.9 Polyneuropathy, unspecified; I11.0 Hypertensive heart disease with heart failure; I50.32 Chronic diastolic (congestive) heart failure; F12.10 Cannabis abuse, uncomplicated; F17.210 Nicotine dependence, cigarettes, uncomplicated; Z21 Asymptomatic human immunodeficiency virus [HIV] infection status; Z53.29 Procedure and treatment not carried out because of patient's decision for other reasons; K21.9 Gastro-esophageal reflux disease without esophagitis; Z88.0 Allergy status to penicillin
CPT/HCPCS: 36415; 71045; 80053; 80061; 80305; 82550; 82553; 83036; 83880; 84484; 85025; 93005; 93306; 93970; 94640; 96374; 99285; J1650; J1956; J2930; J7611; J7620

== ENCOUNTER 2020-01-18 01:55 | Inpatient (IN) | payer MEDICARE, MEDICAID ==
[~2020-01-18] VITALS: Ht 182.9 cm; Wt 83.0 kg
[2020-01-18] VITALS (8 sets, daily range): BP systolic 113–131; BP diastolic 69–78
[2020-01-18] MEDS ORDERED: IPRATROPIUM BROMIDE (0.02%) 0.5MG/2.5ML NEB HHN STA (02:10)
[2020-01-18] MEDS ORDERED: ALBUTEROL (0.083%) 2.5MG/3ML NEB HHN STA (02:10)
[2020-01-18] MEDS ORDERED: METHYLPREDNISOLONE SOD SUCC 125 MG/2 ML VIAL IV STA (02:10)
[2020-01-18] MEDS ORDERED: MAGNESIUM 2 G PREMIX 50 ML IV STA (02:10)
[2020-01-18] MEDS ORDERED: LEVOFLOXACIN 750MG PREMIX 150 ML IV ONE (02:15)
[2020-01-18 02:48] LABS: BASOPHILS % 0.7 % (0.0-2.0); EOSINOPHILS % 2.7 % (0.0-5.0); HEMOGLOBIN. 11.5 g/dL (14.0-18.0); MEAN CORPUSCULAR HEMOGLOBIN 31.5 pg (28.0-32.0); MEAN CORPUSCULAR VOLUME 95.4 fL (80.0-94.0); MEAN PLATELET VOLUME 8.6 fl (7.4-10.4); MONOCYTES % 11.2 % (2.0-8.0); NEUTROPHILS % 30.4 % (40.0-76.0); PLATELET 205 x1000/uL (130-400); RED BLOOD CELL COUNT 3.67 mill/uL (4.7-6.1); RED CELL DISTRIBUTION WIDTH 16.9 % (11.6-14.6)
[2020-01-18 02:56] LABS: CHLORIDE 112 mEq/L (98-107)
[2020-01-18 02:57] LABS: PROTHROMBIN TIME 10.2 sec (9.6-11.0)
[2020-01-18] MEDS ORDERED: ACETAMINOPHEN 325MG TABLET PO PRN (09:00)
[2020-01-18] MEDS ORDERED: DIPHENHYDRAMINE 50MG/ML VIAL IV PRN (09:00)
[2020-01-18] MEDS ORDERED: AZITHROMYCIN 500 MG in DEXT 5% WATER 250 ML IV SCH (09:00)
[2020-01-18] MEDS ORDERED: ENOXAPARIN 40MG/0.4ML SYR SUBCUT SCH (09:00)
[2020-01-18] MEDS ORDERED: IPRATROPIUM/ALBUTEROL 0.5-3(2.5)MG/3ML NEB HHN PRN (09:00)
[2020-01-18] MEDS ORDERED: ONDANSETRON HCL 4MG/2ML INJ IV PRN (09:00)
[2020-01-18] MEDS ORDERED: CLONIDINE 0.1MG TABLET PO PRN (09:00)
[2020-01-18] MEDS ORDERED: AZITHROMYCIN 500MG in DEXTROSE 5% WATER 250ML IV SCH (10:00)
[2020-01-18] MEDS ORDERED: PREDNISONE 20MG TABLET PO SCH (11:00)
[2020-01-18] MEDS: IPRATROPIUM/ALBUTEROL 0.5-3(2.5)MG/3ML NEB HHN SCH ×2 (13:00→20:11)
[2020-01-18 13:22] LABS: PHOSPHORUS 1.4 mg/dL (2.5-4.9)
[2020-01-18] MEDS ORDERED: PNEUMOCOCCAL 23-VAL P-SAC VAC 0.5 ML IM ONE (14:15)
[2020-01-18] MEDS ORDERED: ZOLPIDEM TARTRATE 5MG TABLET PO PRN (20:15)
[2020-01-19] VITALS: BP 151/81
[2020-01-19] MEDS: IPRATROPIUM/ALBUTEROL 0.5-3(2.5)MG/3ML NEB HHN SCH (02:06)
[2020-01-19 03:59] VITALS: BP 120/75
[2020-01-19 09:11] LABS: ABSOLUTE LYMPHOCYTES 0.6 x10E3/uL (0.7-3.1); ABSOLUTE MONOCYTES 0.1 x10E3/uL (0.1-0.9); ABSOLUTE NEUTROPHILS 3.1 x10E3/uL (1.4-7.0); BASOPHILS 0 % (Not Estab.); HEMATOCRIT 31.1 % (37.5-51.0); HEMATOLOGY COMMENT Note: (.); HEMOGLOBIN 10.1 g/dL (13.0-17.7); IMMATURE GRANULOCYTES 1 % (Not Estab.); LYMPHOCYTES 16 % (Not Estab.); MEAN CORPUSCULAR HEMOGLOBIN 29.8 pg (26.6-33.0); MEAN CORPUSCULAR HGB CONC. 32.5 g/dL (31.5-35.7); MEAN CORPUSCULAR VOLUME 92 fL (79-97); MONOCYTES 1 % (Not Estab.); NEUTROPHILS 82 % (Not Estab.); PLATELETS 211 x10E3/uL (150-450); RBC 3.39 x10E6/uL (4.14-5.80); RED CELL DISTRIBUTION WIDTH 15.8 % (11.6-15.4); WBC 3.8 x10E3/uL (3.4-10.8)
[2020-01-19 09:38] LABS: CHLORIDE 111 mEq/L (98-107)
[2020-01-19 10:15] LABS: HDL CHOLESTEROL 62 mg/dL (40-59); LDL CHOLESTEROL 95 mg/dL (5-100)
[2020-01-19 13:07] LABS: % CD 3 POS. LYMPHOCYTES 68.2 % (57.5-86.2); % CD 8 POS. LYMPH 41.3 % (12.0-35.5); ABSOLUTE CD 3 409 /uL (622-2402); ABSOLUTE CD 4 HELPER 174 /uL (359-1519); ABSOLUTE CD 8 SUPPRESSOR 248 /uL (109-897)
[2020-01-22 13:07] LABS: *HIV-1 RNA BY PCR 30 copies/mL (.)
== END 2020-01-19 06:53 | disposition left against medical advice (07) | DRG 140 ==
LOC: EDBD → ER 01:55 → 5EST 04:25 → EDBEDREQ 04:28 → EDBEDREQTM 04:28 → ENRESERV 07:22
PROVIDERS: ADMIT Internal Medicine; ATTEND Internal Medicine
DX: J44.1 Chronic obstructive pulmonary disease with (acute) exacerbation (principal); J96.00 Acute respiratory failure, unspecified whether with hypoxia or hypercapnia; E11.9 Type 2 diabetes mellitus without complications; F12.90 Cannabis use, unspecified, uncomplicated; F17.210 Nicotine dependence, cigarettes, uncomplicated; I10 Essential (primary) hypertension; J68.0 Bronchitis and pneumonitis due to chemicals, gases, fumes and vapors; Z53.29 Procedure and treatment not carried out because of patient's decision for other reasons; X08.8XXA Exposure to other specified smoke, fire and flames, initial encounter; Z82.49 Family history of ischemic heart disease and other diseases of the circulatory system; Z83.3 Family history of diabetes mellitus; Z88.0 Allergy status to penicillin; N17.2 Acute kidney failure with medullary necrosis; Z21 Asymptomatic human immunodeficiency virus [HIV] infection status
CPT/HCPCS: 36415; 71045; 80053; 80061; 83605; 83615; 83735; 83880; 84100; 84145; 84443; 84484; 85025; 86359; 86360; 87536; 93005; 93970; 94644; 96365; 97162; 99291; J0456; J1650; J1956; J2930; J3475; J7060; J7512

== ENCOUNTER 2020-01-27 07:17 | Inpatient (IN) | payer MEDICARE, MEDICAID ==
[~2020-01-27] VITALS: Ht 190.5 cm; Wt 74.8 kg
[2020-01-27] MEDS ORDERED: ALBUTEROL (0.083%) 2.5MG/3ML NEB HHN STA (07:50)
[2020-01-27] MEDS ORDERED: IPRATROPIUM BROMIDE (0.02%) 0.5MG/2.5ML NEB HHN STA (07:50)
[2020-01-27] MEDS ORDERED: METHYLPREDNISOLONE SOD SUCC 125 MG/2 ML VIAL IV STA (07:50)
[2020-01-27 08:03] LABS: HEMATOCRIT. 39.4 % (42.0-52.0); HEMOGLOBIN. 12.9 g/dL (14.0-18.0); MEAN CORPUSCULAR HEMOGLOBIN 31.3 pg (28.0-32.0); MEAN CORPUSCULAR VOLUME 95.6 fL (80.0-94.0); MEAN PLATELET VOLUME 8.3 fl (7.4-10.4); PLATELET 175 x1000/uL (130-400); RED BLOOD CELL COUNT 4.12 mill/uL (4.7-6.1); RED CELL DISTRIBUTION WIDTH 17.1 % (11.6-14.6)
[2020-01-27 08:10] LABS: CHLORIDE 110 mEq/L (98-107)
[2020-01-27 08:30] LABS: PLATELET ESTIMATE NORMAL
[2020-01-27] MEDS ORDERED: LEVOFLOXACIN 500MG PREMIX 100 ML IV SCH ×2 (11:00→11:15)
[2020-01-27] MEDS ORDERED: MAGNESIUM/ALUMINUM HYDROXIDE/SIMETHICONE 30ML UDC PO PRN ×2 (11:15)
[2020-01-27] MEDS ORDERED: NA PHOS,M-B/NA PHOS,DI-BA ENEMA 118ML PR PRN (11:15)
[2020-01-27] MEDS ORDERED: CLONIDINE 0.1MG TABLET PO PRN ×2 (11:15)
[2020-01-27] MEDS ORDERED: ENOXAPARIN 40MG/0.4ML SYR SUBCUT SCH ×2 (11:15→12:00)
[2020-01-27] MEDS ORDERED: IPRATROPIUM/ALBUTEROL 0.5-3(2.5)MG/3ML NEB NEB PRN ×2 (11:15)
[2020-01-27] MEDS ORDERED: DOCUSATE SODIUM 100MG CAPSULE PO PRN ×2 (11:15)
[2020-01-27] MEDS ORDERED: DIPHENHYDRAMINE 50MG/ML VIAL IV PRN ×2 (11:15)
[2020-01-27] MEDS ORDERED: LORAZEPAM 2MG/ML CPJ IV PRN ×2 (11:15)
[2020-01-27] MEDS ORDERED: ONDANSETRON HCL 4MG/2ML INJ IV PRN ×2 (11:15)
[2020-01-27] MEDS ORDERED: HYDROCODONE/ACETAMINOPHEN 5/325MG TABLET PO PRN ×2 (11:15)
[2020-01-27] MEDS ORDERED: MORPHINE SULFATE 2 MG/ML CPJ (NOT FOR IM USE) IV PRN ×2 (11:15)
[2020-01-27] MEDS ORDERED: METHYLPREDNISOLONE SOD SUCC 125 MG/2 ML VIAL IV SCH ×2 (11:15→12:00)
[2020-01-27] MEDS ORDERED: GUAIFENESIN 200MG/10ML SUGAR FREE UDC PO PRN (11:15)
[2020-01-27] MEDS ORDERED: ACETAMINOPHEN 325MG TABLET PO PRN ×2 (11:15)
[2020-01-27] MEDS ORDERED: BENZONATATE 100MG CAPSULE PO PRN (14:15)
[2020-01-27] MEDS ORDERED: IPRATROPIUM/ALBUTEROL 0.5-3(2.5)MG/3ML NEB HHN PRN (14:15)
[2020-01-27 14:19] VITALS: BP 124/96
[2020-01-27 15:51] LABS: CHLORIDE 108 mEq/L (98-107)
[2020-01-27 16:00] VITALS: BP 113/62
[2020-01-27] MEDS ORDERED: PNEUMOCOCCAL 23-VAL P-SAC VAC 0.5 ML IM ONE (16:30)
[2020-01-27] MEDS ORDERED: OMEPRAZOLE 20MG CAPSULE EXTENDED RELEASE PO NR (18:45)
[2020-01-27 20:00] VITALS: BP 115/81
[2020-01-27] MEDS: AMLODIPINE 2.5MG TABLET PO SCH (20:51)
[2020-01-27] MEDS: IPRATROPIUM/ALBUTEROL 0.5-3(2.5)MG/3ML NEB HHN SCH (21:26)
[2020-01-28] VITALS: BP 120/58
[2020-01-28] MEDS: IPRATROPIUM/ALBUTEROL 0.5-3(2.5)MG/3ML NEB HHN SCH ×5 (00:40→16:40)
[2020-01-28 02:08] LABS: CLARITY URINE CLEAR (CLEAR); COLOR URINE DARK YELLOW (YELLOW); KETONES URINE TRACE (NEGATIVE); LEUKOCYTE ESTERASE URINE 2+ (NEGATIVE); NITRITE URINE NEGATIVE (NEGATIVE); OCCULT BLOOD URINE NEGATIVE (NEGATIVE); PROTEIN URINE TRACE (NEGATIVE); SPECIFIC GRAVITY URINE 1.021 (1.005-1.030); UROBILINOGEN URINE 0.2 E.U./dL (0.2-1.0)
[2020-01-28 02:21] LABS: *AMPHETAMINES SCREEN URINE NEGATIVE (NEGATIVE); *BARBITURATES SCREEN URINE NEGATIVE (NEGATIVE); *BENZODIAZEPINES SCREEN URINE NEGATIVE (NEGATIVE); *COCAINE SCREEN URINE PRESUMTIVE POSITIVE (NEGATIVE); CANNABINOID URINE SCREEN PRESUMTIVE POSITIVE (NEGATIVE); METHADONE URINE SCREEN NEGATIVE (NEGATIVE); OPIATES URINE SCREEN NEGATIVE (NEGATIVE); PHENCYCLIDINE URINE SCREEN NEGATIVE (NEGATIVE)
[2020-01-28 04:00] VITALS: BP 138/88
[2020-01-28 06:36] LABS: HEMATOCRIT. 35.4 % (42.0-52.0); HEMOGLOBIN. 11.6 g/dL (14.0-18.0); MEAN CORPUSCULAR HEMOGLOBIN 31.4 pg (28.0-32.0); MEAN CORPUSCULAR VOLUME 95.7 fL (80.0-94.0); MEAN PLATELET VOLUME 9.3 fl (7.4-10.4); PLATELET 178 x1000/uL (130-400); RED BLOOD CELL COUNT 3.69 mill/uL (4.7-6.1); RED CELL DISTRIBUTION WIDTH 17.1 % (11.6-14.6)
[2020-01-28 06:48] LABS: CHLORIDE 108 mEq/L (98-107)
[2020-01-28 06:55] LABS: LDL CHOLESTEROL 114 mg/dL (5-100)
[2020-01-28 06:57] LABS: HDL CHOLESTEROL 60 mg/dL (40-59); T4 FREE 1.08 ng/dL (0.76-1.46)
[2020-01-28] MEDS ORDERED: ASPIRIN 81MG EC TABLET PO SCH (09:00)
[2020-01-28] MEDS: AMLODIPINE 2.5MG TABLET PO SCH (10:42)
[2020-01-28] MEDS ORDERED: LEVOFLOXACIN 500MG PREMIX 100 ML IV SCH (11:00)
[2020-01-28 13:42] LABS: PLATELET ESTIMATE NORMAL
[2020-01-28 15:44] VITALS: BP 124/76
== END 2020-01-28 17:27 | disposition home or self-care (01) | DRG 133 ==
LOC: ER 07:48 → EDBD 07:48 → 8WST 10:41 → EDBEDREQ 10:46 → EDBEDREQTM 10:46 → ENRESERV 12:19
PROVIDERS: ADMIT Internal Medicine; ATTEND Internal Medicine
DX: J96.00 Acute respiratory failure, unspecified whether with hypoxia or hypercapnia (principal); J44.1 Chronic obstructive pulmonary disease with (acute) exacerbation; B19.20 Unspecified viral hepatitis C without hepatic coma; F12.90 Cannabis use, unspecified, uncomplicated; F14.90 Cocaine use, unspecified, uncomplicated; F17.210 Nicotine dependence, cigarettes, uncomplicated; G40.909 Epilepsy, unspecified, not intractable, without status epilepticus; I50.32 Chronic diastolic (congestive) heart failure; I11.0 Hypertensive heart disease with heart failure; I44.4 Left anterior fascicular block; J06.9 Acute upper respiratory infection, unspecified; N17.9 Acute kidney failure, unspecified; M94.0 Chondrocostal junction syndrome [Tietze]; N39.498 Other specified urinary incontinence; N40.1 Benign prostatic hyperplasia with lower urinary tract symptoms; Z82.49 Family history of ischemic heart disease and other diseases of the circulatory system; Z99.81 Dependence on supplemental oxygen; Z88.0 Allergy status to penicillin; Z71.6 Tobacco abuse counseling; R74.0 Nonspecific elevation of levels of transaminase and lactic acid dehydrogenase [LDH]
CPT/HCPCS: 36415; 71045; 80048; 80053; 80061; 80305; 81003; 83735; 83880; 84439; 84443; 84484; 85025; 87804; 93005; 93306; 94644; 99285; J1200; J1650; J1956; J2060; J2930

== ENCOUNTER 2020-04-01 16:49 | Emergency (ER) | payer MEDICARE, MEDICAID ==
[~2020-04-01] VITALS: Ht 177.8 cm; Wt 82.0 kg
[2020-04-01 16:51] VITALS: BP 124/76
== END 2020-04-01 17:41 | disposition left against medical advice (07) ==
LOC: ER 16:49
DX: R53.1 Weakness (principal); Z53.21 Procedure and treatment not carried out due to patient leaving prior to being seen by health care provider

== ENCOUNTER 2020-04-15 00:51 | Inpatient (IN) | payer OTHER, MEDICARE, MEDICAID ==
[~2020-04-15] VITALS: Ht 185.4 cm; Wt 73.5 kg
[2020-04-15] MEDS ORDERED: ALBUTEROL (0.083%) 2.5MG/3ML NEB HHN STA (01:13)
[2020-04-15] MEDS ORDERED: IPRATROPIUM BROMIDE (0.02%) 0.5MG/2.5ML NEB HHN STA (01:13)
[2020-04-15] MEDS ORDERED: METHYLPREDNISOLONE ACETATE 40MG/ML VIAL IM ONE (01:15)
[2020-04-15] MEDS ORDERED: METHYLPREDNISOLONE SOD SUCC 125 MG/2 ML VIAL IV ONE (01:15)
[2020-04-15] MEDS ORDERED: ALBUTEROL 6.7GM HFA INHALER ORI ONE (02:00)
[2020-04-15] MEDS ORDERED: AZITHROMYCIN 500 MG in DEXT 5% WATER 250 ML IV ONE (02:15)
[2020-04-15] MEDS ORDERED: LEVOFLOXACIN 750MG PREMIX 150 ML IV ONE ×2 (03:00)
[2020-04-15 04:16] LABS: BASOPHILS % 0.7 % (0.0-2.0); EOSINOPHILS % 1.5 % (0.0-5.0); HEMATOCRIT. 39.1 % (42.0-52.0); HEMOGLOBIN. 12.6 g/dL (14.0-18.0); LYMPHOCYTES % 34.8 % (20.0-50.0); MEAN CORPUSCULAR HEMOGLOBIN 30.7 pg (28.0-32.0); MEAN CORPUSCULAR VOLUME 95.1 fL (80.0-94.0); MEAN PLATELET VOLUME 9.4 fl (7.4-10.4); MONOCYTES % 6.3 % (2.0-8.0); NEUTROPHILS % 56.7 % (40.0-76.0); PLATELET 194 x1000/uL (130-400)
[2020-04-15 04:21] LABS: CHLORIDE 112 mEq/L (98-107)
[2020-04-16] MEDS ORDERED: ONDANSETRON HCL 4MG/2ML INJ IV PRN (09:00)
[2020-04-16] MEDS ORDERED: ACETAMINOPHEN 325MG TABLET PO PRN (09:00)
[2020-04-16] MEDS ORDERED: CLONIDINE 0.1MG TABLET PO PRN (09:00)
[2020-04-16] MEDS ORDERED: DIPHENHYDRAMINE 50MG/ML VIAL IV PRN (09:00)
[2020-04-16] MEDS ORDERED: ALBUTEROL 6.7GM HFA INHALER ORI PRN (09:00)
[2020-04-16 10:15] VITALS: BP 142/99
[2020-04-16] MEDS ORDERED: ALBU6.7H9 INH (11:34)
[2020-04-16] MEDS ORDERED: ABAC1TAB3 PO (11:34)
[2020-04-16] MEDS ORDERED: OXYC-93 PO (11:34)
[2020-04-16] MEDS ORDERED: DARU1TAB PO (11:34)
[2020-04-16] MEDS ORDERED: OXYC20TA71 PO (11:34)
[2020-04-16] MEDS ORDERED: OXYC30TA PO (11:34)
[2020-04-16] MEDS ORDERED: BENA20TA10 PO (11:34)
[2020-04-16] MEDS ORDERED: CROF125T PO (11:34)
[2020-04-16] MEDS ORDERED: ATEN-42 PO (11:34)
[2020-04-16] MEDS ORDERED: OMEP20CA14 PO (11:34)
[2020-04-16] MEDS ORDERED: TAMS-11 PO (11:34)
[2020-04-16] MEDS ORDERED: AMLO5TAB4 PO (11:34)
[2020-04-16 11:47] VITALS: BP 135/99
[2020-04-16 12:00] VITALS: BP 152/98
[2020-04-16] MEDS: FAMOTIDINE 20MG TABLET PO SCH ×2 (12:32→21:40)
[2020-04-16] MEDS: ENOXAPARIN 40MG/0.4ML SYR SUBCUT SCH (12:36)
[2020-04-16 16:00] VITALS: BP 146/93
[2020-04-16] MEDS: BENAZEPRIL 10MG TABLET PO SCH (17:01)
[2020-04-16] MEDS: ATENOLOL 25MG TABLET PO SCH (17:02)
[2020-04-16] MEDS: TAMSULOSIN HCL 0.4MG SR CAPSULE PO SCH (17:02)
[2020-04-16] MEDS ORDERED: INFLUENZA VACCINE 05/PF 0.5 ML VIAL IM ONE (17:15)
[2020-04-16] MEDS ORDERED: PNEUMOCOCCAL 23-VAL P-SAC VAC 0.5 ML IM ONE (17:15)
[2020-04-16 20:00] VITALS: BP 129/85
[2020-04-16] MEDS: AMLODIPINE 5MG TABLET PO SCH (21:40)
[2020-04-16 22:19] VITALS: BP 142/81
[2020-04-17] VITALS (7 sets, daily range): BP systolic 118–136; BP diastolic 75–95
[2020-04-17 07:28] LABS: BASOPHILS % 0.5 % (0.0-2.0); EOSINOPHILS % 0.1 % (0.0-5.0); HEMATOCRIT. 36.7 % (42.0-52.0); HEMOGLOBIN. 12.2 g/dL (14.0-18.0); LYMPHOCYTES % 29.9 % (20.0-50.0); MEAN CORPUSCULAR HEMOGLOBIN 31.2 pg (28.0-32.0); MONOCYTES % 6.4 % (2.0-8.0); NEUTROPHILS % 63.1 % (40.0-76.0); PLATELET 185 x1000/uL (130-400); RED CELL DISTRIBUTION WIDTH 16.8 % (11.6-14.6)
[2020-04-17 07:51] LABS: CHLORIDE 111 mEq/L (98-107)
[2020-04-17 08:03] LABS: LDL CHOLESTEROL 108 mg/dL (5-100)
[2020-04-17 08:04] LABS: HDL CHOLESTEROL 54 mg/dL (40-59)
[2020-04-17] MEDS ORDERED: OMEPRAZOLE 20MG CAPSULE EXTENDED RELEASE PO SCH (09:00)
[2020-04-17] MEDS: FAMOTIDINE 20MG TABLET PO SCH (09:34)
[2020-04-17] MEDS: BENAZEPRIL 10MG TABLET PO SCH (09:35)
[2020-04-17] MEDS: AMLODIPINE 5MG TABLET PO SCH (09:35)
[2020-04-17] MEDS: ENOXAPARIN 40MG/0.4ML SYR SUBCUT SCH (09:35)
[2020-04-17] MEDS: TAMSULOSIN HCL 0.4MG SR CAPSULE PO SCH (09:36)
[2020-04-17] MEDS: ATENOLOL 25MG TABLET PO SCH (09:37)
[2020-04-17] MEDS ORDERED: ALBUTEROL (0.083%) 2.5MG/3ML NEB HHN PRN (14:45)
== END 2020-04-17 16:17 | disposition home or self-care (01) | DRG 554 ==
LOC: ER 01:07 → 7WST 05:24 → ENRESERV 04-16 08:49 → 3WST 04-16 22:24
PROVIDERS: ADMIT Internal Medicine; ATTEND Internal Medicine
DX: M16.11 Unilateral primary osteoarthritis, right hip (principal); E87.2 Acidosis; I10 Essential (primary) hypertension; E11.9 Type 2 diabetes mellitus without complications; M54.9 Dorsalgia, unspecified; F12.90 Cannabis use, unspecified, uncomplicated; F17.200 Nicotine dependence, unspecified, uncomplicated; Z20.828 Contact with and (suspected) exposure to other viral communicable diseases; R32 Unspecified urinary incontinence; R15.9 Full incontinence of feces; Z82.49 Family history of ischemic heart disease and other diseases of the circulatory system; Z88.0 Allergy status to penicillin; Z79.899 Other long term (current) drug therapy
CPT/HCPCS: 36415; 71045; 80053; 80061; 83605; 83880; 84443; 84484; 85025; 87635; 93005; 94640; 99291; J0456; J1030; J1650; J1956; J2930; J7060

== ENCOUNTER 2020-08-14 02:17 | Emergency (ER) | payer MEDICARE, MEDICAID ==
[~2020-08-14] VITALS: Ht 182.9 cm; Wt 85.0 kg
[~2020-08-14 02:17] MED LIST changes: +ALBU6.7H9 INH; +AMLO5TAB4 PO; -AMLO5TAB88 PO; +BENA20TA10 PO; -CLON-457 PO; +CROF125T PO; +DARU1TAB PO; -GABA300C PO; +OMEP20CA14 PO; +OXYC-93 PO; +OXYC20TA71 PO; +OXYC30TA PO; +TAMS-11 PO
[2020-08-14] MEDS ORDERED: BACITRACIN ZINC OINT UDPKT TOP ONE (03:15)
[2020-08-14 04:05] VITALS: BP 144/98
== END 2020-08-14 04:07 | disposition home or self-care (01) ==
LOC: ER 02:17
DX: C76.0 Malignant neoplasm of head, face and neck (principal); R58 Hemorrhage, not elsewhere classified; Z85.6 Personal history of leukemia; F12.10 Cannabis abuse, uncomplicated; Z79.899 Other long term (current) drug therapy; Z88.0 Allergy status to penicillin
CPT/HCPCS: 93005; 99283; Z7610